=== PATIENT | female | born 1975 | race Caucasian/White ===

== ENCOUNTER → 2016-10-03 | Outpatient (CLI) | payer BC ==
[2016-10-03 11:28] LABS: HEMOGLOBIN 11.7 gm/dl (12.3-15.3); RED BLOOD COUNT 4.27 M/UL (4.00-5.10); WHITE BLOOD COUNT 6.8 K/UL (4.5-11.0)
[2016-10-03 12:01] LABS: BUN/CREATININE RATIO 22 (0-10)
== END ==
LOC: LAB 09:47
PROVIDERS: Internal Medicine Hematology & Oncology
DX: C18.9 Malignant neoplasm of colon, unspecified (principal)
CPT/HCPCS: 36415; 80053; 85025

== ENCOUNTER → 2020-10-02 | Outpatient (CLI) | payer OTHER | LOC: ECHO 12:47 → NM 15:00 | DX: R07.9 Chest pain, unspecified (principal) | CPT/HCPCS: ECHO; 93017; 93306 ==

== ENCOUNTER → 2021-09-07 | Outpatient (CLI) | payer BC | LOC: MAMO 06-08 15:30 | DX: Z12.31 Encounter for screening mammogram for malignant neoplasm of breast (principal) | CPT/HCPCS: 77063; 77067 ==

== ENCOUNTER → 2021-09-13 | Outpatient (CLI) | payer BC | LOC: RAD 17:13 | DX: M25.562 Pain in left knee (principal) | CPT/HCPCS: 73560 ==